=== PATIENT | female | born 1960 | race Caucasian/White ===

== ENCOUNTER 2022-02-24 12:34 | Emergency (ER) | payer OTHER ==
[2022-02-24 13:52] LABS: HEMOGLOBIN 15.3 gm/dl (12.3-15.3); RED BLOOD COUNT 5.39 M/UL (4.00-5.10)
[2022-02-24 14:02] LABS: BUN/CREATININE RATIO 21 (0-10)
== END 2022-02-24 15:10 | disposition home or self-care (01) ==
LOC: ER1 12:34
PROVIDERS: Physician Assistant
DX: D69.6 Thrombocytopenia, unspecified (principal); E87.5 Hyperkalemia; D72.829 Elevated white blood cell count, unspecified; Z88.5 Allergy status to narcotic agent; Z79.82 Long term (current) use of aspirin
CPT/HCPCS: 80048; 85025; 93005; 99283

== ENCOUNTER → 2022-03-26 | Outpatient (CLI) | payer OTHER | LOC: LAB 15:16 | DX: D69.6 Thrombocytopenia, unspecified (principal); D75.839 Thrombocytosis, unspecified | CPT/HCPCS: 36415; 84132 ==